=== PATIENT | male | born 1940 | race Caucasian/White ===

== ENCOUNTER 2018-04-12 23:35 | Emergency (ER) | payer MEDICARE, BC ==
--- NOTE | 2018-04-12 23:38 | ER Report ---
History and Physical Time Seen By MD: 23:37 HPI/ROS CHIEF COMPLAINT: dizziness, nausea HISTORY OF PRESENT ILLNESS: This is a 78 year old male. He is having severe dizziness and nausea. He has some mild headache and neck pain. 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 His ENT in [place] was planning on getting an MRI coming up in the next few days. He is here visiting family in [place]. Has dizziness off and on, has tried Meclizine without relief. Sudden onset tonight. Worsens with position change. Feels near syncopal. Has numbness on left face and tongue. No vision changes tonight. He denies fevers or chills. Having generalized weakness REVIEW OF SYSTEMS: Constitutional: No fever or chills. Eyes: No vision changes. ENT: No sore throat. No congestion. Cardiovascular: No chest pain. Respiratory: No shortness of breath. Gastrointestinal: No abdominal pain. No change in bowel movements. Genitourinary: No trouble urinating. Musculoskeletal: No musculoskeletal pain. Skin: No rashes. Neurological: As above. Allergies: Coded Allergies: Sulfa (Sulfonamide Antibiotics) (Verified Allergy, Intermediate, HIVES, 04/12/18) Home Meds Active Scripts Promethazine Hcl (PROMETHAZINE HCL) 25 Mg Tablet, 25 MG PO Q8H Y for NAUSEA/ VOMITING, #30 TAB 0 Refills Prov:SHIELA CHIN MD 04/13/18 Ondansetron (ZOFRAN ODT) 4 Mg Tab.rapdis, 4 MG PO Q6H Y for NAUSEA/VOMITING, # 20 TAB.ARI 0 Refills Prov:SHIELA CHIN MD 04/13/18 Meclizine Hcl (MECLIZINE HCL) 25 Mg Tablet, 25 MG PO TID Y for DIZZINESS, #30 TAB 0 Refills Prov:SHIELA CHIN MD 04/13/18 Scopolamine (Scopolamine) 1 Mg/3 Day Patch.td.3, 1 PATCH TD Q3D, #10 PATCH 0 Refills Prov:SHIELA CHIN MD 04/13/18 Reported Medications Cholecalciferol (Vitamin D3) (VITAMIN D3) 1,000 Unit Tablet, 2000 UNIT PO QDAY, TAB 04/13/18 Linagliptin (TRADJENTA) 5 Mg Tablet, 5 MG PO QDAY 04/13/18 Levothyroxine Sodium (TIROSINT) 25 Mcg Capsule, 25 MCG PO QDAY, CAPSULE 04/13/18 Budesonide/Formoterol Fumarate (SYMBICORT 160-4.5 MCG INHALER) 10.2 Gm Inh, 2 PUFF INH BID, INH 04/13/18 Sodium Bicarbonate (SODIUM BICARBONATE) 650 Mg Tablet, 2 TAB PO BID 04/13/18 Oxygen (OXYGEN) Inha, 2 L INH HS, L 04/13/18 Nitroglycerin (NITROGLYCERIN) 0.4 Mg Tab.subl, 0.4 MG SL Q5MIN 04/13/18 Esomeprazole Magnesium (NEXIUM) 40 Mg Capsule.dr, 20 MG PO QDAY, CAP 04/13/18 Lisinopril (LISINOPRIL) 20 Mg Tablet, 20 MG PO BID, TAB 04/13/18 Insulin Glargine (LANTUS) 100 Unit/Ml Soln, 8 UNIT SUBQ BID Y for WITH SLIDING SCALE, ML 04/13/18 Hydrochlorothiazide (HYDROCHLOROTHIAZIDE) 25 Mg Tablet, 1 TAB PO QDAY, TAB 04/13/18 Atorvastatin Calcium (LIPITOR) 40 Mg Tablet, 1 TAB PO QDAY, TAB 04/13/18 Furosemide (FUROSEMIDE) 40 Mg Tablet, 1 TAB PO QDAY Y for NEEDED, TAB 04/13/18 Mometasone/Formoterol (DULERA 200 MCG/5 MCG INHALER) 13 Gm Inh, 2 PUFF INH BID, INH 04/13/18 Citalopram Hydrobromide (CITALOPRAM HBR) 20 Mg Tablet, 20 MG PO QDAY, #5 TAB 04/13/18 Carvedilol (CARVEDILOL) 6.25 Mg Tab, 6.25 MG PO QPM, TAB 04/13/18 Calcium Carbonate/Vitamin D3 (CALCIUM 500 + D TABLET) 1 Each Tablet, 1 EACH PO 04/13/18 Aspirin (ASPIR 81) 81 Mg Tablet.dr, 81 MG PO QDAY, TAB 04/13/18 Amlodipine Besylate (AMLODIPINE BESYLATE) 5 Mg Tablet, 1 TAB PO QDAY, TAB 04/13/18 Past Medical/Surgical History Type 2 diabetes, chronic kidney disease, coronary artery disease with history of stents, Hypertension, GERD, hypothyroidism, melanoma, skin cancer/melanoma, shoulder surgeries, low back surgery, 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 Reviewed Nurses Notes: Yes Constitutional Vital Sign - Last 24 Hours 04/12/18 04/12/18 04/12/18 04/13/18 23:37 23:37 23:50 00:05 Temp 99.0 Pulse 61 62 62 Resp 22 12 22 B/P (MAP) 123/64 123/64 (83) Pulse Ox 95 95 93 O2 Delivery Room Air 04/13/18 04/13/18 04/13/18 04/13/18 00:20 00:35 00:50 01:05 Pulse 61 58 59 62 Resp 15 13 16 12 Pulse Ox 96 94 93 89 04/13/18 04/13/18 04/13/18 04/13/18 01:20 01:50 01:55 02:00 Pulse 64 67 Resp 16 24 B/P (MAP) 127/67 (87) 110/61 (77) Pulse Ox 92 04/13/18 04/13/18 04/13/18 04/13/18 02:10 02:25 02:30 02:40 Pulse 60 61 58 Resp 9 15 29 B/P (MAP) 104/58 (73) Pulse Ox 92 93 93 04/13/18 04/13/18 04/13/18 04/13/18 02:45 04:49 05:15 05:24 Pulse 62 60 Resp 17 20 B/P (MAP) 118/62 (80) Pulse Ox 90 92 O2 Flow Rate 3.0 Physical Exam General Appearance: The patient is alert. acute distress due to dizziness and nausea. Eyes: Pupils are equal, round. Reactive to light. No pallor, injection or icterus. Extraocular movements are intact. No nystagmus at rest and none with [place]-Hallpike maneuvers. ENT: Mucous membranes are moist. Normal oral mucosa. Posterior oropharynx is normal. Neck: Supple and non tender anterior. Some pain in posterior neck, diffuse. Respiratory: Lungs are clear to auscultation. Cardiovascular: Regular rate and rhythm. No murmurs, gallops or rubs. Normal capillary refill. Trace ankle edema. No carotid bruits. Gastrointestinal: Abdomen is soft and non tender. Nondistended. Normal active bowel sounds. Neurological: Alert and oriented x3. Cranial nerves with eye exam as noted. Having numbness of the face on left which is not new. Tongue is midline and symmetric palate elevation. Some left sided facial weakness. Generalized equal weakness of the arms and legs, non-focal. Normal sensation in extremities. Negative Jony-Hallpike maneuvers. Skin: Cool, diaphoretic. Musculoskeletal: Extremities are nontender. No pain in the back with palpation. DIFFERENTIAL DIAGNOSIS: After history and physical exam, differential diagnosis was considered for patient with ongoing dizziness with symptoms of headache, neck pain, and neurologic changes with Izquierdo palsy. Plan for him at home in [place] would have been to get an MRI done, and I would like to try and have that done tonight. We'll check labs, we'll also look for other possible causes such as cardiac or metabolic. Medical Decision Making Data Points Result Diagram: 04/13/18 0027 04/13/18 0027 Laboratory Hematology Test 04/13/18 00:27 04/13/18 01:56 Red Blood Count 4.73 M/uL (4.00-5.60) Mean Corpuscular Volume 81.4 fL (80.0-96.0) Mean Corpuscular Hemoglobin 29.0 pg (26.0-33.0) Mean Corpuscular Hemoglobin Concent 35.6 g/dL (32.0-36.0) Red Cell Distribution Width 14.4 % (11.5-14.5) Mean Platelet Volume 7.3 fL (7.2-11.1) Neutrophils (%) (Auto) 70.8 % (39.4-72.5) Lymphocytes (%) (Auto) 13.7 % (17.6-49.6) Monocytes (%) (Auto) 12.9 % (4.1-12.4) Eosinophils (%) (Auto) 1.7 % (0.4-6.7) Basophils (%) (Auto) 0.9 % (0.3-1.4) Nucleated RBC Relative Count (auto) 0.0 /100WBC Neutrophils # (Auto) 6.0 K/uL (2.0-7.4) Lymphocytes # (Auto) 1.2 K/uL (1.3-3.6) Monocytes # (Auto) 1.1 K/uL (0.3-1.0) Eosinophils # (Auto) 0.1 K/uL (0.0-0.5) Basophils # (Auto) 0.1 K/uL (0.0-0.1) Nucleated RBC Absolute Count (auto) 0.00 K/uL Erythrocyte Sedimentation Rate 7 mm/HOUR (0-20) Sodium Level 134 mmol/L (137-145) Potassium Level 3.4 mmol/L (3.5-5.0) Chloride Level 101 mmol/L (98-107) Carbon Dioxide Level 23 mmol/L (22-30) Blood Urea Nitrogen 26 mg/dl (9-21) Creatinine 1.60 mg/dl (0.66-1.25) Glomerular Filtration Rate Calc 42.0 Random Glucose 120 mg/dl (75-110) Calcium Level 8.9 mg/dl (8.4-10.2) Total Bilirubin 0.6 mg/dl (0.2-1.3) Aspartate Amino Transf (AST/SGOT) 29 U/L (0-35) Alanine Aminotransferase (ALT/SGPT) 37 U/L (0-56) Alkaline Phosphatase 91 U/L (0-126) Troponin I 0.012 ng/ml C-Reactive Protein 0.5 mg/dl (<1.0) Total Protein 6.4 gm/dl (6.3-8.2) Albumin 3.7 g/dl (3.5-5.0) Urine Color Yellow Urine Clarity Clear Urine pH 7.0 pH (4.8-9.5) Urine Specific [place] 1.013 Urine Protein Negative mg/dL (NEGATIVE) Urine Glucose (UA) Negative mg/dL (NEGATIVE) Urine Ketones Negative mg/dL (NEGATIVE) Urine Blood Negative (NEGATIVE) Urine Nitrite Negative (NEGATIVE) Urine Bilirubin Negative (NEGATIVE) Urine Urobilinogen Negative mg/dL (0.2-1.9) Urine Leukocyte Esterase Negative (NEGATIVE) Urine RBC <1 /HPF (0-2/HPF) Urine WBC <1 /HPF (0-5/HPF) Urine Squamous Epithelial Cells Few /LPF (</=FEW) Urine Bacteria Negative /HPF (NONE-FEW) Urine Mucus None /HPF (NONE-FEW) Chemistry Test 04/13/18 00:27 04/13/18 01:56 White Blood Count 8.5 k/uL (4.5-11.0) Red Blood Count 4.73 M/uL (4.00-5.60) Hemoglobin 13.7 g/dL (14.0-18.0) Hematocrit 38.5 % (42.0-52.0) Mean Corpuscular Volume 81.4 fL (80.0-96.0) Mean Corpuscular Hemoglobin 29.0 pg (26.0-33.0) Mean Corpuscular Hemoglobin Concent 35.6 g/dL (32.0-36.0) Red Cell Distribution Width 14.4 % (11.5-14.5) Platelet Count 149 K/uL (150-450) Mean Platelet Volume 7.3 fL (7.2-11.1) Neutrophils (%) (Auto) 70.8 % (39.4-72.5) Lymphocytes (%) (Auto) 13.7 % (17.6-49.6) Monocytes (%) (Auto) 12.9 % (4.1-12.4) Eosinophils (%) (Auto) 1.7 % (0.4-6.7) Basophils (%) (Auto) 0.9 % (0.3-1.4) Nucleated RBC Relative Count (auto) 0.0 /100WBC Neutrophils # (Auto) 6.0 K/uL (2.0-7.4) Lymphocytes # (Auto) 1.2 K/uL (1.3-3.6) Monocytes # (Auto) 1.1 K/uL (0.3-1.0) Eosinophils # (Auto) 0.1 K/uL (0.0-0.5) Basophils # (Auto) 0.1 K/uL (0.0-0.1) Nucleated RBC Absolute Count (auto) 0.00 K/uL Erythrocyte Sedimentation Rate 7 mm/HOUR (0-20) Glomerular Filtration Rate Calc 42.0 Calcium Level 8.9 mg/dl (8.4-10.2) Total Bilirubin 0.6 mg/dl (0.2-1.3) Aspartate Amino Transf (AST/SGOT) 29 U/L (0-35) Alanine Aminotransferase (ALT/SGPT) 37 U/L (0-56) Alkaline Phosphatase 91 U/L (0-126) Troponin I 0.012 ng/ml C-Reactive Protein 0.5 mg/dl (<1.0) Total Protein 6.4 gm/dl (6.3-8.2) Albumin 3.7 g/dl (3.5-5.0) Urine Color Yellow Urine Clarity Clear Urine pH 7.0 pH (4.8-9.5) Urine Specific [place] 1.013 Urine Protein Negative mg/dL (NEGATIVE) Urine Glucose (UA) Negative mg/dL (NEGATIVE) Urine Ketones Negative mg/dL (NEGATIVE) Urine Blood Negative (NEGATIVE) Urine Nitrite Negative (NEGATIVE) Urine Bilirubin Negative (NEGATIVE) Urine Urobilinogen Negative mg/dL (0.2-1.9) Urine Leukocyte Esterase Negative (NEGATIVE) Urine RBC <1 /HPF (0-2/HPF) Urine WBC <1 /HPF (0-5/HPF) Urine Squamous Epithelial Cells Few /LPF (</=FEW) Urine Bacteria Negative /HPF (NONE-FEW) Urine Mucus None /HPF (NONE-FEW) Urinalysis Test 04/13/18 01:56 Urine Color Yellow Urine Clarity Clear Urine pH 7.0 pH (4.8-9.5) Urine Specific [place] 1.013 Urine Protein Negative mg/dL (NEGATIVE) Urine Glucose (UA) Negative mg/dL (NEGATIVE) Urine Ketones Negative mg/dL (NEGATIVE) Urine Blood Negative (NEGATIVE) Urine Nitrite Negative (NEGATIVE) Urine Bilirubin Negative (NEGATIVE) Urine Urobilinogen Negative mg/dL (0.2-1.9) Urine Leukocyte Esterase Negative (NEGATIVE) Urine RBC <1 /HPF (0-2/HPF) Urine WBC <1 /HPF (0-5/HPF) Urine Squamous Epithelial Cells Few /LPF (</=FEW) Urine Bacteria Negative /HPF (NONE-FEW) Urine Mucus None /HPF (NONE-FEW) EKG/Imaging EKG Interpretation 12 lead EKG: Rhythm: Sinus rhythm with first-degree AV block, rate 62 [place]: normal QRS: normal ST segments: normal Imaging PORTABLE CHEST: Indication: Dizziness and nausea. Technique: 2 frontal images were obtained. Comparison: None. Skeletal and soft tissue structures: Intact and unremarkable. Heart and mediastinum: Within normal limits. Lung moya: Well-expanded. There are linear opacities in the lower lung moya , most likely related to fibrosis. No parenchymal consolidation or volume loss is identified. There are no signs of vascular congestion. Pleural spaces: Unremarkable. Impression: No acute process is clearly identified. Report Dictated By: Earl Christy MD at 04/13/2018 12:47 AM MR OF THE BRAIN WITH AND WITHOUT CONTRAST DATE: 04/13/2018 12:08 AM INDICATION: Dizziness, headache, nausea. COMPARISON: None. TECHNIQUE: Multiplanar multisequence pre and postcontrast MRI images of the brain were obtained. The patient received 15 mL of gadobenate IV contrast. FINDINGS: Brain and intracranial structures: There is no mass, hemorrhage or acute infarct. There is a small amount of periventricular and deep white matter T2 hyperintense signal likely related to chronic small vessel ischemic disease. Skull: Normal. Scalp: Normal. Orbits and face (included portions): Bilateral lens surgeries. Paranasal sinuses and mastoid air cells (included portions): Normal. IMPRESSION: 1. No acute abnormality. 2. Mild probable chronic white matter disease. Report Dictated By: Trenton Chang MD at 04/13/2018 5:03 AM EXAMINATION: MRA head HISTORY: Headache, dizziness and nausea. COMPARISON: None. TECHNIQUE: [id number]-la-flight angiography was performed in the axial plane on the [place] without IV gadolinium. The exam was tailored for assessment of the [place] only. Only limited sequences were obtained of the rest of the brain. FINDINGS: Carotids: Negative. Anterior/posterior communicating arteries: Negative. Anterior cerebral arteries: Negative. Middle cerebral arteries: Negative. Posterior cerebral arteries: Negative. Intracranial vertebral arteries: Negative. Artifactual signal loss in the proximal intracranial vertebral arteries limits evaluation. Basilar artery: Negative. PICA/AICA/SCA: Negative. Non-angiographic Findings: Right maxillary retention cyst. IMPRESSION: No apparent acute abnormality of the intracranial arterial supply. Report Dictated By: Trenton Chang MD at 04/13/2018 4:34 AM EXAMINATION: MRA of the neck without and with intravenous contrast HISTORY: Headache, dizziness, nausea. COMPARISON: None available. TECHNIQUE: Multiplanar multisequence pre and postcontrast MRI images of the neck were obtained. The patient received 15 mL of gadobenate IV contrast. 2-D and 3-D imaging was performed. Stenosis of the internal carotid arteries are calculated using NASCET criteria. FINDINGS: Angiographic Findings: Aortic arch / great vessel origins: Negative. Right common carotid: Negative. Right internal carotid: Negative. Right external carotid: Negative. Left common carotid: Negative. Left internal carotid: Negative. Left external carotid: Negative. Vertebrals / basilar: Negative. [place]: Negative. Non-angiographic Findings: None significant. IMPRESSION: Normal MRA of the neck. Report Dictated By: Trenton Chang MD at 04/13/2018 5:12 AM ED Course/Re-evaluation Clinical Indication for ER IV: Hydration, IV Access ED Course After my initial evaluation, it was unclear what the cause of his dizziness was. 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 I ordered an MRI brain with and without contrast, an MRA of the head and neck as well. Labs showed continued chronic kidney disease which is unchanged from his usual by patient report. Very mild hyponatremia and hypokalemia. Very mild anemia as well. Chest x-ray and EKG were negative. MRI and MRA studies came back negative as well. He did require some Ativan and fentanyl to help with his MRIs. We also given Zofran for nausea. We will get him started on a scopolamine patch, meclizine, and some medicine to help with nausea until he is able to follow up with his regular doctor back home in [place]. Decision to Disposition Date: Apr 13, 2018 Decision to Disposition Time: 05:37 Depart Departure Latest Vital Signs Vital Signs Date Time Temp Pulse Resp B/P (MAP) Pulse Ox O2 Delivery O2 Flow Rate FiO2 04/13/18 05:24 3.0 04/13/18 05:15 60 20 92 04/13/18 04:49 118/62 (80) 04/12/18 23:37 99.0 Room Air Impression: Primary Impression: Dizziness Condition: Improved Disposition: HOME OR SELF-CARE New Scripts Promethazine Hcl (PROMETHAZINE HCL) 25 Mg Tablet 25 MG PO Q8H Y for NAUSEA/VOMITING, #30 TAB 0 Refills Prov: SHIELA CHIN MD 04/13/18 Ondansetron (ZOFRAN ODT) 4 Mg Tab.rapdis 4 MG PO Q6H Y for NAUSEA/VOMITING, #20 TAB.ARI 0 Refills Prov: SHIELA CHIN MD 04/13/18 Meclizine Hcl (MECLIZINE HCL) 25 Mg Tablet 25 MG PO TID Y for DIZZINESS, #30 TAB 0 Refills Prov: SHIELA CHIN MD 04/13/18 Scopolamine (Scopolamine) 1 Mg/3 Day Patch.td.3 1 PATCH TD Q3D, #10 PATCH 0 Refills Prov: SHIELA CHIN MD 04/13/18 Patient Instructions: Dizziness (ED) Additional Instructions: Your MRI and MRA studies were normal tonight. We think that the dizziness your are having is likely due to a problem with the inner ear. Follow-up with your doctor in [facility]. In the meantime, we would like to try some medicines to see if we can at least help ease the symptoms. Zofran 4mg, one every 6 hours as needed for nausea. This medicine should not make you drowsy. Phenergan 25mg, one every 8 hours as needed for nausea. This medicine can be very sedating. Meclizine 25mg, one every 8 hours as needed for dizziness. This can make you drowsy. Scopolamine patch. Apply a patch to the skin behind the ear every 3 days. These are used to help with motion sickness. They can make you have a dry mouth. Make sure to try and drink plenty of fluids. SHIELA CHIN MD Apr 12, 2018 23:38
[2018-04-12] MEDS ORDERED: ONDANSETRON 4 MG/2 ML VIAL IVP ONE (23:40)
[2018-04-12] MEDS ORDERED: EMS NS 0.9%(*) 1000 ML BAG 1,000 ML IV ONE (23:40)
--- NOTE | 2018-04-13 00:25 | EKG ---
FACILITY: [facility] [place] PATIENT NAME: ROSALBA MCFARLAND : [id number] MR: [id number] V: [id number] EXAM DATE: ORDERING PHYSICIAN: SHIELA CHIN TECHNOLOGIST: JAYSON Test Reason : DIZZINESS Blood Pressure : / mmHG Vent. Rate : 062 BPM Atrial Rate : 062 BPM P-R Int : 234 ms QRS Dur : 086 ms QT Int : 466 ms P-R-T Axes : 058 020 027 degrees QTc Int : 472 ms Sinus rhythm with 1st degree AV block with premature atrial complexes Otherwise normal ECG No previous ECGs available Confirmed by FADUMO DE PAZ ([id number]) on 04/13/2018 6:29:52 AM Referred By: GIUSEPPE Confirmed By:FADUMO DE PAZ
[2018-04-13] MEDS ORDERED: GADOBENATE 529MG/1ML 15ML VIAL IVP ONE (00:30)
[2018-04-13] MEDS ORDERED: NS 0.9% 20 ML SDV 20 ML ONE ×2 (00:30→00:34)
[2018-04-13 00:33] LABS: PLATELET COUNT, AUTOMATED 149 K/uL (150-450)
[2018-04-13] MEDS ORDERED: AMLO-96 PO (00:35)
[2018-04-13] MEDS ORDERED: ASPI-1471 PO (00:35)
[2018-04-13] MEDS ORDERED: CALC-734 PO (00:37)
[2018-04-13] MEDS ORDERED: CITA-145 PO (00:38)
[2018-04-13] MEDS ORDERED: CAR6.25 PO (00:38)
[2018-04-13] MEDS ORDERED: DULERAPT INH (00:39)
[2018-04-13] MEDS ORDERED: FURO-47 PO (00:40)
[2018-04-13] MEDS ORDERED: ATOR40TA24 PO (00:40)
[2018-04-13] MEDS ORDERED: HYDR-2966 PO (00:41)
[2018-04-13] MEDS ORDERED: LANI SUBQ (00:42)
[2018-04-13] MEDS ORDERED: LISI20TA29 PO (00:43)
[2018-04-13] MEDS ORDERED: ESOM40CA42 PO (00:43)
[2018-04-13] MEDS ORDERED: NITR0.4T3 SL (00:44)
[2018-04-13] MEDS ORDERED: OXYGENHOME INH (00:45)
[2018-04-13] MEDS ORDERED: BUDE10.2 INH (00:46)
[2018-04-13] MEDS ORDERED: SODI650T7 PO (00:46)
[2018-04-13] MEDS ORDERED: LEVO25CA4 PO (00:47)
[2018-04-13] MEDS ORDERED: LINA5TAB PO (00:47)
[2018-04-13] MEDS ORDERED: CHOL10005 PO (00:48)
--- NOTE | 2018-04-13 00:54 | RADIOLOGY IMAGING REPORT ---
FACILITY: [facility] - [place] PATIENT NAME: Neil Mejias : 1940 MR: [id number] V: [id number] EXAM DATE: ORDERING PHYSICIAN: SHIELA CHIN TECHNOLOGIST: Location: [facility] [place] Patient: Neil Mejias : 1940 Visit/Account:[id number] Date of Sevice: 04/13/2018 PORTABLE CHEST: Indication: Dizziness and nausea. Technique: 2 frontal images were obtained. Comparison: None. Skeletal and soft tissue structures: Intact and unremarkable. Heart and mediastinum: Within normal limits. Lung moya: Well-expanded. There are linear opacities in the lower lung moya, most likely related to fibrosis. No parenchymal consolidation or volume loss is identified. There are no signs of vascula r congestion. Pleural spaces: Unremarkable. Impression: No acute process is clearly identified. Report Dictated By: Earl Christy MD at 04/13/2018 12:47 AM Report E-Signed By: Earl Christy MD at 04/13/2018 12:50 AM WSN:[id number]
[2018-04-13] MEDS ORDERED: LORazepam 2 MG/ML VIAL IVP ONE (02:20)
[2018-04-13] MEDS ORDERED: fentaNYL CITR 100 MCG/2 ML AMP IVP ONE (02:20)
--- NOTE | 2018-04-13 04:47 | RADIOLOGY IMAGING REPORT ---
FACILITY: [facility] - [place] PATIENT NAME: Neil Mejias : 1940 MR: [id number] V: [id number] EXAM DATE: ORDERING PHYSICIAN: SHIELA CHIN TECHNOLOGIST: Location: [facility] Patient: Neil Mejias : 1940 Visit/Account:[id number] Date of Sevice: 04/13/2018 EXAMINATION: MRA head HISTORY: Headache, dizziness and nausea. COMPARISON: None. TECHNIQUE: 4Z-uhwo-lm-flight angiography was performed in the axial plane on the [place] without IV fahad olinium. The exam was tailored for assessment of the [place] only. Only limited sequences were obtai jumana of the rest of the brain. FINDINGS: Carotids: Negative. Anterior/posterior communicating arteries: Negative. Anterior cerebral arteries: Negative. Middle cerebral arteries: Negative. Posterior cerebral arteries: Negative. Intracranial vertebral arteries: Negative. Artifactual signal loss in the proximal intracranial vert ebral arteries limits evaluation. Basilar artery: Negative. PICA/AICA/SCA: Negative. Non-angiographic Findings: Right maxillary retention cyst. IMPRESSION: No apparent acute abnormality of the intracranial arterial supply. Report Dictated By: Trenton Chang MD at 04/13/2018 4:34 AM Report E-Signed By: Trenton Chang MD at 04/13/2018 4:43 AM WSN:[id number]
--- NOTE | 2018-04-13 05:16 | RADIOLOGY IMAGING REPORT ---
FACILITY: [facility] PATIENT NAME: Neil Mejias : 1940 MR: [id number] V: [id number] EXAM DATE: ORDERING PHYSICIAN: SHIELA CHIN TECHNOLOGIST: Location: [facility] [place] Patient: Neil Mejias : 1940 Visit/Account:[id number] Date of Sevice: 04/13/2018 MR OF THE BRAIN WITH AND WITHOUT CONTRAST DATE: 04/13/2018 12:08 AM INDICATION: Dizziness, headache, nausea. COMPARISON: None. TECHNIQUE: Multiplanar multisequence pre and postcontrast MRI images of the brain were obtained. The patient received 15 mL of gadobenate IV contrast. FINDINGS: Brain and intracranial structures: There is no mass, hemorrhage or acute infarct. There is a small a mount of periventricular and deep white matter T2 hyperintense signal likely related to chronic small vessel ischemic disease. Skull: Normal. Scalp: Normal. Orbits and face (included portions): Bilateral lens surgeries. Paranasal sinuses and mastoid air cells (included portions): Normal. IMPRESSION: 1. No acute abnormality. 2. Mild probable chronic white matter disease. Report Dictated By: Trenton Chang MD at 04/13/2018 5:03 AM Report E-Signed By: Trenton Chang MD at 04/13/2018 5:12 AM WSN:[id number]
--- NOTE | 2018-04-13 05:25 | RADIOLOGY IMAGING REPORT ---
FACILITY: [facility] - [place] PATIENT NAME: Neil Mejias : 1940 MR: [id number] V: [id number] EXAM DATE: ORDERING PHYSICIAN: SHIELA CHIN TECHNOLOGIST: Location: [facility] [place] Patient: Neil Mejias : 1940 Visit/Account:[id number] Date of Sevice: 04/13/2018 EXAMINATION: MRA of the neck without and with intravenous contrast HISTORY: Headache, dizziness, nausea. COMPARISON: None available. TECHNIQUE: Multiplanar multisequence pre and postcontrast MRI images of the neck were obtained. The patient received 15 mL of gadobenate IV contrast. 2-D and 3-D imaging was performed. Stenosis of th e internal carotid arteries are calculated using NASCET criteria. FINDINGS: Angiographic Findings: Aortic arch / great vessel origins: Negative. Right common carotid: Negative. Right internal carotid: Negative. Right external carotid: Negative. Left common carotid: Negative. Left internal carotid: Negative. Left external carotid: Negative. Vertebrals / basilar: Negative. [place]: Negative. Non-angiographic Findings: None significant. IMPRESSION: Normal MRA of the neck. Report Dictated By: Trenton Chang MD at 04/13/2018 5:12 AM Report E-Signed By: Trenton Chang MD at 04/13/2018 5:22 AM WSN:[id number]
[2018-04-13] MEDS ORDERED: MECLIZINE HCL 25 MG TAB PO ONE (05:40)
[2018-04-13] MEDS ORDERED: SCOPOLAMINE 1.5 MG PATCH TD ONE (05:40)
[2018-04-13] MEDS ORDERED: SCOP1PAT16 TD (05:41)
[2018-04-13] MEDS ORDERED: ONDA4TAB PO (05:41)
[2018-04-13] MEDS ORDERED: MECL25TA9 PO (05:41)
[2018-04-13] MEDS ORDERED: PROM-110 PO (05:41)
[2018-04-13] MEDS ORDERED: ONDANSETRON 4 MG ODT TH SL ONE (05:45)
[2018-04-13 06:09] VITALS: BP 101/54
== END 2018-04-13 07:15 | disposition home or self-care (01) ==
LOC: ER 23:41
DX: R42 Dizziness and giddiness (principal); N18.9 Chronic kidney disease, unspecified; E87.1 Hypo-osmolality and hyponatremia; E87.6 Hypokalemia; D64.9 Anemia, unspecified
CPT/HCPCS: 70544; 70549; 70553; 71045; 81001; 84484; 85025; 85651; 86140; 93005; 96361; 96374; 96375; 99284; A9270; A9577; J2060; J2405; J3010; J7050; J8597; Q0162; 82040; 82247; 82310; 82374; 82435; 82565; 82947; 84075; 84132; 84155; 84295; 84450; 84460; 84520; S0119

== ENCOUNTER → 2018-04-12 | Outpatient (CLI) | payer MEDICARE, BC ==
[~2018-04-12] MED LIST: AMLO-96 PO; ASPI-1471 PO; ATOR40TA24 PO; BUDE10.2 INH; CALC-734 PO; CAR6.25 PO; CHOL10005 PO; CITA-145 PO; DULERAPT INH; ESOM40CA42 PO; FURO-47 PO; HYDR-2966 PO; LANI SUBQ; LEVO25CA4 PO; LINA5TAB PO; LISI20TA29 PO; MECL25TA9 PO; NITR0.4T3 SL; ONDA4TAB PO; OXYGENHOME INH; PROM-110 PO; SCOP1PAT16 TD; SODI650T7 PO
== END ==
LOC: AMB 22:52
PROVIDERS: ATTEND Nurse Practitioner
DX: R11.0 Nausea (principal); R42 Dizziness and giddiness; R53.1 Weakness
CPT/HCPCS: A0425; A0427

== ENCOUNTER 2018-09-24 16:44 | Emergency (ER) | payer MEDICARE, BC ==
[~2018-09-24 16:44] MED LIST changes: +AMLO-111 PO; -AMLO-96 PO
[2018-09-24] MEDS ORDERED: BUTA1CAP7 PO (17:00)
[2018-09-24] MEDS ORDERED: DIPHTH/TETANUS/ACEL. PERTUSSIS IM ONLY ONE (17:10)
--- NOTE | 2018-09-24 17:13 | ER Report ---
History and Physical Time Seen By MD: 17:13 HPI/ROS CHIEF COMPLAINT: Cut thumb with table saw HISTORY OF PRESENT ILLNESS: 78-year-old male patient presents to emergency room with complaint of a laceration to the left thumb secondary to table saw. Patient states he was cutting a piece was when his thumb slipped on the blade. Patient states he did apply pressure. He states the bleeding has stopped at this point. He states he is unsure of his last tetanus shot. He denies any numbness or tingling to the thumb. He is able to move his thumb without any difficulties. Patient has not taken any medication for this. 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[employer] 09/24/18 Promethazine Hcl (PROMETHAZINE HCL) 25 Mg Tablet, 25 MG PO Q8H PRN for NAUSEA/VOMITING, #30 TAB 0 Refills Prov:SHIELA CHIN MD 04/13/18 Ondansetron (ZOFRAN ODT) 4 Mg Tab.rapdis, 4 MG PO Q6H PRN for NAUSEA/VOMITING, #20 TAB.ARI 0 Refills Prov:SHIELA CHIN MD 04/13/18 Scopolamine (Scopolamine) 1 Mg/3 Day Patch.td.3, 1 PATCH TD Q3D, #10 PATCH 0 Refills Prov:SHIELA CHIN MD 04/13/18 Reported Medications Butalbit/Acetamin/Caff/Codeine ([id number]-[id number]-CODEIN) 1 Each Capsule, 1 EACH PO Q4H, CAPSULE 09/24/18 Cholecalciferol (Vitamin D3) (VITAMIN D3) 1,000 Unit Tablet, 2000 UNIT PO QDAY, TAB 04/13/18 Linagliptin (TRADJENTA) 5 Mg Tablet, 5 MG PO QDAY 04/13/18 Levothyroxine Sodium (TIROSINT) 25 Mcg Capsule, 25 MCG PO QDAY, CAPSULE 04/13/18 Sodium Bicarbonate (SODIUM BICARBONATE) 650 Mg Tablet, 2 TAB PO BID 04/13/18 Oxygen (OXYGEN) Inha, 2 L INH HS, L 04/13/18 Nitroglycerin (NITROGLYCERIN) 0.4 Mg Tab.subl, 0.4 MG SL Q5MIN 04/13/18 Esomeprazole Magnesium (NEXIUM) 40 Mg Capsule.dr, 20 MG PO QDAY, CAP 04/13/18 Lisinopril (LISINOPRIL) 20 Mg Tablet, 20 MG PO BID, TAB 04/13/18 Insulin Glargine (LANTUS) 100 Unit/Ml Soln, 8 UNIT SUBQ BID PRN for WITH SLIDING SCALE, ML 04/13/18 Atorvastatin Calcium (LIPITOR) 40 Mg Tablet, 1 TAB PO QDAY, TAB 04/13/18 Citalopram Hydrobromide (CITALOPRAM HBR) 20 Mg Tablet, 20 MG PO QDAY, #5 TAB 04/13/18 Carvedilol (CARVEDILOL) 6.25 Mg Tab, 6.25 MG PO QPM, TAB 04/13/18 Calcium Carbonate/Vitamin D3 (CALCIUM 500 + D TABLET) 1 Each Tablet, 1 EACH PO 04/13/18 Aspirin (ASPIR 81) 81 Mg Tablet.dr, 81 MG PO QDAY, TAB 04/13/18 Amlodipine Besylate (AMLODIPINE BESYLATE) 5 Mg Tablet, 1 TAB PO QDAY, TAB 04/13/18 Discontinued Reported Medications Budesonide/Formoterol Fumarate (SYMBICORT 160-4.5 MCG INHALER) 10.2 Gm Inh, 2 PUFF INH BID, INH 04/13/18 Hydrochlorothiazide (HYDROCHLOROTHIAZIDE) 25 Mg Tablet, 1 TAB PO QDAY, TAB 04/13/18 Furosemide (FUROSEMIDE) 40 Mg Tablet, 1 TAB PO QDAY PRN for NEEDED, TAB 04/13/18 Mometasone/Formoterol (DULERA 200 MCG/5 MCG INHALER) 13 Gm Inh, 2 PUFF INH BID, INH 04/13/18 Discontinued Scripts Meclizine Hcl (MECLIZINE HCL) 25 Mg Tablet, 25 MG PO TID PRN for DIZZINESS, #30 TAB 0 Refills Prov:SHIELA CHIN MD 04/13/18 Past Medical/Surgical History Patient has a past medical history of migraines, hypertension, raccoon sufficiency, reflux, kidney failure, Guillain-Schrader, diabetes, cancer. Patient has surgical history of coronary stent 15, umbilical hernia repair, L4 L5 S1 fusion, bilateral rotator cuff surgery, right total hip, skin cancer removed. Reviewed Nurses Notes: Yes Hx Substance Use Disorder: No Hx Alcohol Use: No Constitutional Vital Sign - Last 24 Hours 09/24/18 09/24/18 16:49 19:25 Temp 98.1 Pulse 75 78 Resp 16 B/P (MAP) 136/68 130/80 (97) Pulse Ox 90 O2 Delivery Room Air Physical Exam General appearance: Alert no distress. Respiratory: Chest is non tender, lungs are clear to auscultation. Cardiac: Regular rate and rhythm. Skin: Patient has a 3cm laceration across the palmar aspect of the left thumb. Patient has good strength with flexion and extension. There does not appear to be any tendon or ligamentous injury. DIFFERENTIAL DIAGNOSIS: After history and physical exam differential diagnosis was considered for laceration, fracture, retained foreign bodies. Medical Decision Making EKG/Imaging Imaging EXAMINATION: Left thumb, 3 views 09/24/2018 5:24 PM HISTORY: laceration. Table saw injury. COMPARISON: None FINDINGS: Fracture the base of the distal phalanx of the thumb with primary cortical defect along the anterolateral aspect of the bone. There is overlying soft tissue laceration. No radiodense foreign body. DIP joint is not involved but does show mild degenerative spurring. No other acute finding. IMPRESSION: Open fracture of the left thumb distal phalanx without visible foreign body. Report Dictated By: Cirilo Ontiveros MD at 09/24/2018 6:15 PM Report E-Signed By: Cirilo Ontiveros MD at 09/24/2018 6:17 PM ED Course/Re-evaluation ED Course Patient was admitted to exam room, history and physical obtained. Differential diagnoses were considered. Patient has 3 similar laceration across the palmar aspect of the left thumb. X-ray was done which showed a fracture of the distal phalanx. I discussed findings with patient. IV was started and the patient received a dose of Ancef. The wound was anesthetized, cleaned and repaired described below. Patient tolerated procedure well. He was dressed with a bandage and discharged home. He is to follow-up with orthopedics when he returns home. Patient did receive a tetanus shot here in the emergency room. Patient verbalized understanding and agreement with plan. Procedure: Laceration repair. Verbal consent was obtained from the patient. The 3 cm laceration on the ulnar aspect of the left thumb was anesthetized in the usual fashion. The wound was scrubbed, draped and explored to its base with a gloved finger. There were no deep structures involved. No tendon injury was identified. The wound was repaired with 9 simple interrupted sutures using 4-0 Ethilon material. The wound repair was simple. The procedure was performed by myself. Decision to Disposition Date: Sep 24, 2018 Decision to Disposition Time: 19:05 Depart Departure Latest Vital Signs Vital Signs Date Time Temp Pulse Resp B/P (MAP) Pulse Ox O2 Delivery O2 Flow Rate FiO2 09/24/18 19:25 78 130/80 (97) 09/24/18 16:49 98.1 16 90 Room Air Impression: Primary Impression: Open fracture of left thumb Condition: Improved Disposition: HOME OR SELF-CARE New Scripts Cephalexin 500 Mg Tab (KEFLEX 500 MG TAB) 500 Mg Tablet 500 MG PO Q6H, #28 TAB Prov: LDOLIMPIA DANIEL 09/24/18 Patient Instructions: Finger Laceration (ED) Additional Instructions: Keep wound dry for 48 hours. Follow up with your orthopedist, call tomorrow to make an appointment. Monitor for signs of infection; redness, swelling, heat, discharge, increasing pain or red streaking. Take Tylenol as needed for pain. Return to the ER with any concerns. You may change dressing as needed. The splint in place until seen by her orthopedist. Ice the finger 2-3 times a day through the splint. Problem Qualifiers Primary Impression: Open fracture of left thumb Encounter type: initial encounter Phalanx: distal Fracture alignment: nondisplaced Qualified Codes: S62.525B - Nondisplaced fracture of distal phalanx of left thumb, initial encounter for open fracture OLIMPIA JAFFE Sep 24, 2018 17:13
[2018-09-24] MEDS ORDERED: ceFAZolin(*) 1 GM VIAL 1 GM in NS(*) 0.9% 100 ML ADDVANT BAG 100 ML IV ONE (17:45)
--- NOTE | 2018-09-24 18:20 | RADIOLOGY IMAGING REPORT ---
FACILITY: [facility] PATIENT NAME: Neil Mejias : 1940 MR: [id number] V: [id number] EXAM DATE: ORDERING PHYSICIAN: OLIMPIA JAFFE TECHNOLOGIST: Location: [facility] Patient: Neil Mejias : 1940 Visit/Account:[id number] Date of Sevice: 09/24/2018 EXAMINATION: Left thumb, 3 views 09/24/2018 5:24 PM HISTORY: laceration. Table saw injury. COMPARISON: None FINDINGS: Fracture the base of the distal phalanx of the thumb with primary cortical defect along th e anterolateral aspect of the bone. There is overlying soft tissue laceration. No radiodense foreign body. DIP joint is not involved but does show mild degenerative spurring. No other acute finding. IMPRESSION: Open fracture of the left thumb distal phalanx without visible foreign body. Report Dictated By: Cirilo Ontiveros MD at 09/24/2018 6:15 PM Report E-Signed By: Cirilo Ontiveros MD at 09/24/2018 6:17 PM [id number]
[2018-09-24] MEDS ORDERED: CEPH500T7 PO (19:09)
[2018-09-24 19:25] VITALS: BP 130/80
== END 2018-09-24 19:35 | disposition home or self-care (01) ==
LOC: ER 16:56
DX: S62.525B Nondisplaced fracture of distal phalanx of left thumb, initial encounter for open fracture (principal); W31.2XXA Contact with powered woodworking and forming machines, initial encounter
CPT/HCPCS: 12002; 73140; 90471; 90715; 96365; 99283; J0690; J7050